=== PATIENT | male | born 1980 | race Caucasian/White ===

== ENCOUNTER 2021-04-20 14:55 | Emergency (ER) | payer BC, OTHER ==
[~2021-04-20] VITALS: Ht 177.8 cm; Wt 104.3 kg
[2021-04-20] MEDS ORDERED: BENZOIN COMPOUND TINCT 60 ML BOTTLE ONE (15:11)
--- NOTE | 2021-04-20 15:20 | NUR ---
RECEIVED PATIENT AXOX4.NO SOB NO DISTRESS NOTED.C/O DIZZINESS.VITAL SIGNS STABLE.
[2021-04-20] MEDS ORDERED: IV NS 0.9% 1,000 ML BAG IV ONE (15:30)
--- NOTE | 2021-04-20 15:33 | NUR ---
STROKE ASSESSMENT DONE ,SCORE IS ZERO.PATIENT HAD CORNEAL TRANSPLANT FOR BOTH EYES 2007 AND IN 2011.BLURRY VISION FOR L EYE IS NOT NEW.IS PRESENT AFTER SURGERY.
[2021-04-20 15:40] LABS: BASOPHILS % (AUTO) 0.5 % (0.0-2.0); EOSINOPHILS % (AUTO) 1.7 % (0.0-6.0); HEMATOCRIT 49 % (39-51); HEMOGLOBIN 16.7 g/dL (13.5-17.5); LYMPHOCYTES # (AUTO) 2.2 K/uL (0.8-4.8); MEAN CORPUSCULAR HGB CONC 34 g/dl (31.0-36.0); MEAN CORPUSCULAR VOLUME 91 fL (80-96); MONOCYTES # (AUTO) 0.5 K/uL (0.1-1.30); MONOCYTES % (AUTO) 7.1 % (2.0-12.0); NEUTROPHILS # (AUTO) 3.9 K/uL (1.8-8.9); NEUTROPHILS % (AUTO) 57.7 % (43.0-81.0); PLATELET COUNT (AUTO) 260 K/uL (150-450); RED BLOOD CELL COUNT(AUTO) 5.39 MIL/uL (4.5-6.0); WHITE BLOOD COUNT (AUTO) 6.7 K/uL (4.3-11.0)
[2021-04-20] MEDS ORDERED: BUPR-319 PO (15:49)
[2021-04-20] MEDS ORDERED: CETI-90 PO (15:49)
[2021-04-20] MEDS ORDERED: EMTR1TAB12 PO (15:49)
[2021-04-20 15:59] LABS: CALCIUM, SERUM 8.6 mg/dL (8.5-10.1); CREATININE 1.1 mg/dL (0.6-1.3); POTASSIUM 3.8 mmol/L (3.5-5.1)
[2021-04-20 16:05] LABS: ALBUMIN 4.1 g/dL (3.4-5.0); BILIRUBIN,DIRECT 0.2 mg/dL (0.0-0.2); BILIRUBIN,TOTAL 1.2 mg/dL (0.2-1.0); TOTAL PROTEIN, SERUM 7.9 g/dL (6.4-8.2)
[2021-04-20] MEDS ORDERED: ASPIRIN 81 MG TAB.CHEW ONE (16:47)
[2021-04-20] MEDS ORDERED: ASPIRIN 81 MG TAB.CHEW PO ONE (17:00)
[2021-04-20 17:40] LABS: BILIRUBIN,URINE Negative (NEGATIVE); COLOR,URINE YELLOW (YELLOW); LEUKOCYTE ESTERASE ,URINE Negative (NEGATIVE); NITRITE, URINE Negative (NEGATIVE); PROTEIN,URINE Negative (NEGATIVE); UGLUCOSE Negative (NEGATIVE); UROBILINOGEN,URINE 0.2 EU/dL (0.2)
--- NOTE | 2021-04-20 17:50 | NUR ---
CLINICALS GIVEN TO ADMITTING
--- NOTE | 2021-04-20 18:17 | NUR ---
DR. PHILLIPS SPEAKING WITH DR. PATHAK PT GOING TO [facility] AWAITING BED AND TRANSPORT.
--- NOTE | 2021-04-20 18:25 | NUR ---
JEROME ORTIZ CALLED REGARDING TRANSPORT ASKING FOR COVID RESULT. ORDERED, PLEASE FAX RESULTS TO [phone] CALL WITH ANY QUESTIONS [phone]
--- NOTE | 2021-04-20 19:09 | NUR ---
REPORT GIVEN TO [facility] FOR [facility].
--- NOTE | 2021-04-20 21:29 | NUR ---
CALL FROM BEATA CALHOUN PT ACCEPTED TO [facility], ROOM 619. # FOR REPORT [phone]. [facility] ETA [phone]
--- NOTE | 2021-04-20 22:10 | NUR ---
REPORT GIVEN TO GABRIELLE ANTONIO
--- NOTE | 2021-04-20 22:35 | NUR ---
TRANSFERRED TO [facility]
[2021-04-20 22:37] VITALS: BP 155/81
== END 2021-04-20 22:56 | disposition short-term general hospital (02) ==
LOC: ER 15:19
DX: R42 Dizziness and giddiness (principal); I21.4 Non-ST elevation (NSTEMI) myocardial infarction; F32.9 Major depressive disorder, single episode, unspecified; Z20.822 Contact with and (suspected) exposure to COVID-19
CPT/HCPCS: 36415; 70450; 71045; 80048; 80076; 81003; 84484; 85025; 87081; 87426; 93005; 96360; 99285; C9803; J7030 ×2